=== PATIENT | female | born 1985 | race Hispanic/Latino ===

== ENCOUNTER 2018-01-26 21:39 | Emergency (ER) | payer MEDICAID, OTHER ==
[~2018-01-26 21:39] MED LIST: FERR325C PO; PREN1TAB80 PO
== END 2018-01-26 22:23 | disposition home or self-care (01) ==
LOC: EDH 21:39
DX: S39.012A Strain of muscle, fascia and tendon of lower back, initial encounter (principal); X58.XXXA Exposure to other specified factors, initial encounter; Y93.89 Activity, other specified; Y92.89 Other specified places as the place of occurrence of the external cause; Y99.8 Other external cause status
CPT/HCPCS: 99281

== ENCOUNTER 2018-09-19 16:45 | Emergency (ER) | payer OTHER ==
[2018-09-19 19:00] LABS: BILIRUBIN,URINE Negative (NEGATIVE); COLOR,URINE Yellow (YELLOW); GLUCOSE, URINE (UA) Negative (NEGATIVE); KETONES,URINE Negative (NEGATIVE); LEUKOCYTE ESTERASE ,URINE Negative (NEGATIVE); NITRATE,URINE Negative (NEGATIVE); OCCULT BLOOD,URINE Negative (NEGATIVE); PROTEIN,URINE Negative (NEGATIVE)
[2018-09-19 19:02] LABS: APPEARANCE,URINE CLEAR (CLEAR)
[2018-09-19 19:03] LABS: HCG,QUAL RESULT NEGATIVE (NEGATIVE)
[2018-09-19] MEDS ORDERED: IBUPROFEN 600 MG TABLET ONE (19:29)
[2018-09-19] MEDS ORDERED: SODIUM CHLORIDE 0.9% 1000ML 1,000 ML IV ONE (20:15)
== END 2018-09-19 21:07 | disposition home or self-care (01) ==
LOC: EDH 16:45
DX: J11.1 Influenza due to unidentified influenza virus with other respiratory manifestations (principal); G44.209 Tension-type headache, unspecified, not intractable
CPT/HCPCS: 71046; 81003; 81025; 99284; J7030

== ENCOUNTER 2018-11-12 16:26 | Emergency (ER) | payer OTHER ==
[2018-11-12] MEDS ORDERED: DiphenhydrAMINE HCL 50 MG/ML VIAL ONE (17:25)
[2018-11-12] MEDS ORDERED: PROCHLORPERAZINE EDISYLATE 10 MG/2 ML VIAL ONE (17:25)
[2018-11-12 17:27] LABS: BASOPHILS % (AUTO) 0.8 % (0.0-5.0); EOSINOPHILS % (AUTO) 1.6 % (0.0-8.0); HEMATOCRIT 37.7 % (36-48); LYMPHOCYTES % (AUTO) 34.9 % (21.0-51.0); MEAN CORPUSCULAR HEMOGLOBIN 25.8 pg (27.0-33.0); MEAN CORPUSCULAR HGB CONC 33.2 g/dL (32.0-36.0); MEAN CORPUSCULAR VOLUME 77.6 fL (79-99); MONOCYTES % (AUTO) 7.5 % (3.0-13.0); NEUTROPHILS % (AUTO) 55.2 % (40.0-77.0); NUCLEATED RED BLOOD CELLS 0.1 % (0.0-0.19); PLATELET COUNT (AUTO) 298 K/uL (130-400); RED BLOOD CELL COUNT(AUTO) 4.86 MIL/uL (4.00-5.50); RED CELL DISTRIBUTION WIDTH 14.6 % (11.0-15.5); WHITE BLOOD COUNT (AUTO) 7.2 K/uL (4.8-10.8)
[2018-11-12 17:33] LABS: CREATININE 0.7 mg/dL (0.5-1.5); POTASSIUM 3.7 mmol/L (3.5-5.1)
[2018-11-12 17:38] LABS: ALBUMIN 3.8 g/dL (3.5-5.0); BILIRUBIN,TOTAL 0.2 mg/dL (0.2-1.0); TOTAL PROTEIN, SERUM 7.2 g/dL (6.0-8.3)
== END 2018-11-12 19:10 | disposition home or self-care (01) ==
LOC: EDH 16:26
DX: G43.909 Migraine, unspecified, not intractable, without status migrainosus (principal); Z87.891 Personal history of nicotine dependence
CPT/HCPCS: 36415; 80053; 81025; 85025; 96374; 96375; 99284; J0780; J1200

== ENCOUNTER 2019-09-07 08:19 | Emergency (ER) | payer SELFPAY ==
[2019-09-07 08:45] LABS: APPEARANCE,URINE Clear (CLEAR); BILIRUBIN,URINE Negative (NEGATIVE); COLOR,URINE Yellow (YELLOW); GLUCOSE, URINE (UA) Negative (NEGATIVE); KETONES,URINE Negative (NEGATIVE); LEUKOCYTE ESTERASE ,URINE Small (NEGATIVE); NITRATE,URINE Negative (NEGATIVE); OCCULT BLOOD,URINE Nonhemolyzed Trace (NEGATIVE); PROTEIN,URINE Negative (NEGATIVE)
[2019-09-07 08:47] LABS: HCG,QUAL RESULT NEGATIVE (NEGATIVE)
[2019-09-07 08:59] LABS: BACTERIA,URINE Few /HPF (None Seen); RBC,URINE 0-1 /HPF (0-1); WBC,URINE 0-1 /HPF (0-1)
[2019-09-07] MEDS ORDERED: KETOROLAC TROMETHAMINE 30MG/ML ONE (09:30)
[2019-09-07] MEDS ORDERED: SODIUM CHLORIDE 0.9% 1000ML 1,000 ML IV ONE (09:31)
== END 2019-09-07 11:29 | disposition home or self-care (01) ==
LOC: EDH 08:19
DX: M54.5 Low back pain (principal)
CPT/HCPCS: 74176; 81001; 81025; 96374; 99285; J1885; J7030

== ENCOUNTER 2020-11-11 21:25 | Emergency (ER) | payer OTHER, MEDICAID ==
[2020-11-11] MEDS ORDERED: KETOROLAC TROMETHAMINE 60 MG/2 ML VIAL ONE (21:54)
[2020-11-11] MEDS ORDERED: DIAZEPAM 5 MG TABLET ONE (21:54)
[2020-11-11] MEDS ORDERED: HYDROCODONE/ACETAMINOPHEN 10/325 MG TAB ONE (21:55)
[2020-11-11 22:01] LABS: APPEARANCE,URINE Clear (CLEAR); BILIRUBIN,URINE Negative (NEGATIVE); COLOR,URINE Yellow (YELLOW); GLUCOSE, URINE (UA) Negative (NEGATIVE); KETONES,URINE Negative (NEGATIVE); LEUKOCYTE ESTERASE ,URINE Negative (NEGATIVE); NITRATE,URINE Negative (NEGATIVE); OCCULT BLOOD,URINE Moderate (NEGATIVE); PH,URINE 6.5 (5.0-8.0); PROTEIN,URINE Negative (NEGATIVE); UROBILINOGEN,URINE 0.2 mg/dL (0.2-1.0)
[2020-11-11 22:17] LABS: BACTERIA,URINE None Seen /HPF (None Seen); SQUAMOUS EPITHELIAL CELL,UR Few /HPF (0-2); WBC,URINE None Seen /HPF (0-1)
[2020-11-11 22:18] LABS: HCG,QUAL RESULT NEGATIVE (NEGATIVE)
== END 2020-11-11 23:00 | disposition home or self-care (01) ==
LOC: EDH 21:25
DX: M54.31 Sciatica, right side (principal); G43.909 Migraine, unspecified, not intractable, without status migrainosus
CPT/HCPCS: 72100; 81001; 81025; 96372; 99284; J1885

== ENCOUNTER 2022-07-28 13:15 | Emergency (ER) | payer MEDICAID, OTHER ==
[~2022-07-28] VITALS: Ht 165.1 cm; Wt 91.2 kg
[2022-07-28 13:41] LABS: BASOPHILS % (AUTO) 0.4 % (0.0-5.0); EOSINOPHILS % (AUTO) 0.1 % (0.0-8.0); HEMATOCRIT 36.8 % (36-48); LYMPHOCYTES % (AUTO) 7.6 % (21.0-51.0); MEAN CORPUSCULAR HEMOGLOBIN 24.2 pg (27.0-33.0); MEAN CORPUSCULAR HGB CONC 32.6 g/dL (32.0-36.0); MEAN CORPUSCULAR VOLUME 74.2 fL (79-99); MONOCYTES % (AUTO) 5.5 % (3.0-13.0); NEUTROPHILS % (AUTO) 86.2 % (40.0-77.0); PLATELET COUNT (AUTO) 304 K/uL (130-400); RED BLOOD CELL COUNT(AUTO) 4.96 MIL/uL (4.00-5.50); WHITE BLOOD COUNT (AUTO) 10.6 K/uL (4.8-10.8)
[2022-07-28] MEDS ORDERED: DICYCLOMINE 20MG (10MG/ML) AMP IM STA (13:48)
[2022-07-28 13:51] LABS: CREATININE 0.8 mg/dL (0.5-1.5); POTASSIUM 3.7 mmol/L (3.5-5.1)
[2022-07-28 13:56] LABS: ALBUMIN 3.7 g/dL (3.5-5.0); TOTAL PROTEIN, SERUM 7.5 g/dL (6.0-8.3)
[2022-07-28] MEDS ORDERED: ONDANSETRON 4MG INJ IVP ONE (14:00)
[2022-07-28] MEDS ORDERED: FAMOTIDINE 20MG VIAL IV ONE (14:00)
[2022-07-28] MEDS ORDERED: 0.9%NACL 1000ML 1,000 ML IV ONE (14:00)
[2022-07-28 14:16] LABS: APPEARANCE,URINE CLEAR (CLEAR); BILIRUBIN,URINE NEGATIVE (NEGATIVE); COLOR,URINE COLORLESS (YELLOW); GLUCOSE, URINE (UA) NEGATIVE (NEGATIVE); KETONES,URINE NEGATIVE (NEGATIVE); LEUKOCYTE ESTERASE ,URINE NEGATIVE Leu/uL (NEGATIVE); NITRATE,URINE NEGATIVE (NEGATIVE); OCCULT BLOOD,URINE SMALL (NEGATIVE); PH,URINE 6.5 (5.0-8.0); PROTEIN,URINE NEGATIVE (NEGATIVE); UROBILINOGEN,URINE 0.2 mg/dL (0.2-1.0)
[2022-07-28 14:18] LABS: HCG,QUALITATIVE URINE NEGATIVE (NEGATIVE)
[2022-07-28 14:23] LABS: SQUAMOUS EPITHELIAL CELL,UR MOD /HPF (0-2)
[2022-07-28] MEDS ORDERED: BACI1CAP6 PO (16:37)
[2022-07-28] MEDS ORDERED: DICY20TA2 PO (16:37)
[2022-07-28] MEDS ORDERED: ONDA4TAB10 PO (16:37)
[2022-07-28 16:52] VITALS: BP 128/72
== END 2022-07-28 17:00 | disposition home or self-care (01) ==
LOC: EDH 13:15
DX: K52.9 Noninfective gastroenteritis and colitis, unspecified (principal); Z20.822 Contact with and (suspected) exposure to COVID-19; Z79.899 Other long term (current) drug therapy
CPT/HCPCS: 99285; 74176; 96374; 87635; 96375; 80053; 83690; 85025; 87804 ×2; 81001; 81025; 36415; 96372; C9803; J7030; J2405; J0500; S0028; J3490

== ENCOUNTER → 2025-03-06 | Outpatient (CLI) | payer OTHER ==
[~2025-03-06] MED LIST changes: +BACI1CAP6 PO; +DICY20TA2 PO; +HYDR50CA50 PO; +ONDA-243 PO
--- NOTE | 2025-03-07 06:12 | HMCIMG ---
EXAM: CT Cardiac calcium scoring. CLINICAL HISTORY: Screening. TECHNIQUE: Thin collimated axial CT cardiac images were obtained. A CT scan is done according to ALARA (As Low As Reasonably Achievable). CONTRAST: None. COMPARISON: None provided. FINDINGS: Calcium Score: VESSEL Number of lesions Volume mm3 Equi. Mass/mg Calcium score LM 0 0 - 0 LAD 2 1.5 - 2.2 LCX 0 0 - 0 RCA 1 26.2 - 35.9 Total 3 27.8 - 38.1 IMPRESSION: The total calcium score is 38.1. This corresponds to approximately the 99th percentile. /[place]
== END | disposition home or self-care (01) ==
LOC: RAH 15:10
PROVIDERS: ATTEND Internal Medicine Cardiovascular Disease
DX: Z13.6 Encounter for screening for cardiovascular disorders (principal)
CPT/HCPCS: 75571